=== PATIENT | male | born 1940 | race Caucasian/White ===

== ENCOUNTER → 2016-07-25 | Outpatient (CLI) | payer SELFPAY ==
[~2016-07-25] MED LIST: ASPI-110 PO; LIPI40TA PO; METF500T PO; RAMI5CAP PO
--- NOTE | 2016-07-26 10:57 | RADRPT ---
EXAM DATE/TIME: 07/25/2016 12:49 [place] COMPARISON: No previous studies available for comparison. INDICATIONS : Osteomyelitis of the left foot. DOSE: 20.2 mCi Tc99m Ceretec labeled white blood cells IV SPECT IMAGIN hrs, 20 hrs IMAGNG: SPECT/CT imaging with fusion was performed. RADIATION DOSE: 5.32 CTDIvol (mGy) ; Multiple Day Study MEDICAL HISTORY : Diabetes mellitus type 2. Carcinoma, prostate. SURGICAL HISTORY : Cholecystectomy. Hernia repair, stent in left leg and toes amputated from left foot. ENCOUNTER: Subsequent ACUITY: 7 - 11 months PAIN SCALE: 0/10 LOCATION: Left foot. TECHNIQUE: Following the in vitro labeling of autologous white cells and reinjection, whole body scan was perfor med at the specified times. SPECT imaging was performed at the specified time in sagittal, axial and coronal planes. Attenuation correction was performed with the computed tomography and both the atten uation correction and non-attenuation corrected data sets were reviewed. FINDINGS: There is increased activity involving the right foot at the level of the first metatarsophalangeal ramón int which corresponds to an area of ulceration. No definite bony destruction is seen though MRI would be helpful to evaluate for marrow edema and osteomyelitis if clinically indicated. Examination of th e left foot demonstrates increased activity in the soft tissues at the level of the metatarsal amputa tion. There is increased activity involving the remnant of the fifth metatarsal characteristic of ost eomyelitis. CONCLUSION: 1. Osteomyelitis involving the remnant of the fifth metatarsal on the left. Soft tissue infection is present at the level of the amputation on the left but no discrete bony involvement is identified.2. On the right side at the level of the first metatarsophalangeal joint there is soft tissue infection in the presence of a myelitis in this location cannot be excluded. MRI is recommended for further kyleigh luation if clinically indicated. Willi Barrera MD on July 26, 2016 at 10:50 Board Certified Radiologist. This report was verified electronically.
== END ==
LOC: HRAD 08:19
PROVIDERS: ATTEND Podiatrist Primary Podiatric Medicine
DX: M86.9 Osteomyelitis, unspecified (principal); E11.51 Type 2 diabetes mellitus with diabetic peripheral angiopathy without gangrene; E13.621 Other specified diabetes mellitus with foot ulcer
CPT/HCPCS: 78807; 78999; A9569